=== PATIENT | male | born 1950 | race Caucasian/White ===

== ENCOUNTER 2020-08-14 11:49 | Inpatient (IN) | payer MEDICARE, OTHER ==
[~2020-08-14] VITALS: Ht 172.7 cm; Wt 83.5 kg
[2020-08-14 12:57] LABS: BASOPHILS % 0.7 % (0.0-2.0); EOSINOPHILS % 0.4 % (0.0-5.0); HEMATOCRIT. 39.7 % (42.0-52.0); HEMOGLOBIN. 13.4 g/dL (14.0-18.0); LYMPHOCYTES % 15.1 % (20.0-50.0); MEAN CORPUSCULAR HEMOGLOBIN 29.6 pg (28.0-32.0); MEAN CORPUSCULAR VOLUME 87.6 fL (80.0-94.0); MEAN PLATELET VOLUME 7.8 fl (7.4-10.4); MONOCYTES % 5.1 % (2.0-8.0); NEUTROPHILS % 78.7 % (40.0-76.0); PLATELET 289 x1000/uL (130-400); RED BLOOD CELL COUNT 4.54 mill/uL (4.7-6.1); RED CELL DISTRIBUTION WIDTH 13.6 % (11.6-14.6)
[2020-08-14 12:58] LABS: CHLORIDE 102 mEq/L (98-107)
[2020-08-14] MEDS ORDERED: HYDROCODONE/ACETAMINOPHEN 5/325MG TABLET PO ONE (15:15)
[2020-08-14] MEDS ORDERED: CEFTRIAXONE 1 G PREMIX 50 ML IV ONE (16:45)
[2020-08-14] MEDS ORDERED: ACETAMINOPHEN 325MG TABLET PO PRN ×2 (18:30)
[2020-08-14] MEDS ORDERED: CLONIDINE 0.1MG TABLET PO PRN (18:30)
[2020-08-14] MEDS ORDERED: ONDANSETRON HCL 4MG/2ML INJ IV PRN (18:30)
[2020-08-14] MEDS: LORAZEPAM 0.5MG TABLET PO PRN ×2 (19:06→21:16)
[2020-08-15] MEDS: HYDROCODONE/ACETAMINOPHEN 5/325MG TABLET PO PRN ×2 (00:04→15:41)
[2020-08-15] MEDS ORDERED: IOHEXOL-350 100 ML BOTTLE ONE (05:03)
[2020-08-15] MEDS ORDERED: LURA120T MT (10:58)
[2020-08-15 11:35] LABS: *COCAINE SCREEN URINE NEGATIVE (NEGATIVE)
[2020-08-15 11:36] LABS: *AMPHETAMINES SCREEN URINE NEGATIVE (NEGATIVE); *BARBITURATES SCREEN URINE NEGATIVE (NEGATIVE); CANNABINOID URINE SCREEN PRESUMTIVE POSITIVE (NEGATIVE); METHADONE URINE SCREEN NEGATIVE (NEGATIVE); OPIATES URINE SCREEN PRESUMTIVE POSITIVE (NEGATIVE); PHENCYCLIDINE URINE SCREEN NEGATIVE (NEGATIVE)
[2020-08-15 11:37] LABS: *BENZODIAZEPINES SCREEN URINE NEGATIVE (NEGATIVE)
[2020-08-15] MEDS ORDERED: ALBUTEROL 6.7GM HFA INHALER ORI PRN (12:15)
[2020-08-15] MEDS ORDERED: NON FORMULARY PATIENT HOME MED XX SCH (12:30)
[2020-08-15] MEDS ORDERED: HYDROXYZINE 25MG TABLET PO NR (12:30)
[2020-08-15] MEDS: METHYLPREDNISOLONE SOD SUCC 40 MG/ML VIAL IV SCH (14:25)
[2020-08-15] MEDS: DOCUSATE SODIUM 100MG CAPSULE PO PRN (16:53)
[2020-08-16] MEDS: METHYLPREDNISOLONE SOD SUCC 40 MG/ML VIAL IV SCH ×3 (00:45→21:05)
[2020-08-16] MEDS: HYDROCODONE/ACETAMINOPHEN 5/325MG TABLET PO PRN ×3 (02:02→21:04)
[2020-08-16] MEDS: LORAZEPAM 0.5MG TABLET PO PRN ×2 (02:02→17:01)
[2020-08-16 05:07] LABS: HEMATOCRIT. 43.6 % (42.0-52.0); HEMOGLOBIN. 14.8 g/dL (14.0-18.0); MEAN CORPUSCULAR HEMOGLOBIN 29.5 pg (28.0-32.0); MEAN PLATELET VOLUME 7.5 fl (7.4-10.4); PLATELET 287 x1000/uL (130-400); RED BLOOD CELL COUNT 5.01 mill/uL (4.7-6.1); RED CELL DISTRIBUTION WIDTH 13.5 % (11.6-14.6)
[2020-08-16 05:11] LABS: CHLORIDE 101 mEq/L (98-107)
[2020-08-16 10:30] VITALS: BP 163/98
[2020-08-16 12:00] VITALS: BP 151/76
[2020-08-16] MEDS ORDERED: GABA800T97 PO (12:02)
[2020-08-16 15:44] LABS: PLATELET ESTIMATE NORMAL
[2020-08-16 16:00] VITALS: BP 134/57
[2020-08-16] MEDS: NICOTINE 7MG PATCH TD SCH (16:05)
[2020-08-16] MEDS: HYDROXYZINE 25MG TABLET PO SCH (16:05)
[2020-08-16 20:00] VITALS: BP 122/83
[2020-08-16] MEDS ORDERED: IOHEXOL-350 100 ML BOTTLE ONE (20:48)
[2020-08-16] MEDS: GABAPENTIN 400MG CAPSULE PO SCH (21:05)
[2020-08-16] MEDS: DOCUSATE SODIUM 100MG CAPSULE PO PRN (22:02)
[2020-08-17] VITALS: BP 138/84
[2020-08-17] MEDS: LORAZEPAM 0.5MG TABLET PO PRN ×2 (01:12→23:02)
[2020-08-17 04:00] VITALS: BP 147/83
[2020-08-17] MEDS: METHYLPREDNISOLONE SOD SUCC 40 MG/ML VIAL IV SCH ×3 (05:18→22:28)
[2020-08-17] MEDS: GABAPENTIN 400MG CAPSULE PO SCH ×3 (05:18→22:32)
[2020-08-17] MEDS: HYDROCODONE/ACETAMINOPHEN 5/325MG TABLET PO PRN ×3 (05:27→19:33)
[2020-08-17 08:00] VITALS: BP_SYST 129; BP_SYST 141; BP_DIAS 76; BP_DIAS 78
[2020-08-17 08:13] LABS: BASOPHILS % 0.6 % (0.0-2.0); HEMATOCRIT. 44.3 % (42.0-52.0); HEMOGLOBIN. 14.8 g/dL (14.0-18.0); LYMPHOCYTES % 12.3 % (20.0-50.0); MEAN CORPUSCULAR HEMOGLOBIN 29.3 pg (28.0-32.0); MEAN CORPUSCULAR VOLUME 87.4 fL (80.0-94.0); MEAN PLATELET VOLUME 7.7 fl (7.4-10.4); MONOCYTES % 6.4 % (2.0-8.0); NEUTROPHILS % 80.7 % (40.0-76.0); PLATELET 291 x1000/uL (130-400); RED BLOOD CELL COUNT 5.07 mill/uL (4.7-6.1); RED CELL DISTRIBUTION WIDTH 13.6 % (11.6-14.6)
[2020-08-17 08:33] LABS: CHLORIDE 101 mEq/L (98-107)
[2020-08-17] MEDS: HYDROXYZINE 25MG TABLET PO SCH ×2 (09:23→17:00)
[2020-08-17] MEDS: NICOTINE 7MG PATCH TD SCH (09:23)
[2020-08-17 12:00] VITALS: BP 171/95
[2020-08-17] MEDS: DOCUSATE SODIUM 100MG CAPSULE PO PRN (14:01)
[2020-08-17] MEDS ORDERED: IPRATROPIUM/ALBUTEROL 0.5-3(2.5)MG/3ML NEB HHN PRN (14:15)
[2020-08-17 20:00] VITALS: BP 131/79
[2020-08-17] MEDS: IPRATROPIUM/ALBUTEROL 0.5-3(2.5)MG/3ML NEB HHN SCH (21:53)
[2020-08-17] MEDS: METOPROLOL TARTRATE 25MG TABLET PO SCH (22:29)
[2020-08-18] VITALS: BP 119/74
[2020-08-18] MEDS: HYDROCODONE/ACETAMINOPHEN 5/325MG TABLET PO PRN ×3 (03:34→20:24)
[2020-08-18 04:00] VITALS: BP 112/68
[2020-08-18 06:50] LABS: BASOPHILS % 0.4 % (0.0-2.0); HEMATOCRIT. 43.8 % (42.0-52.0); HEMOGLOBIN. 14.9 g/dL (14.0-18.0); LYMPHOCYTES % 9.6 % (20.0-50.0); MEAN CORPUSCULAR HEMOGLOBIN 29.9 pg (28.0-32.0); MEAN CORPUSCULAR VOLUME 88.1 fL (80.0-94.0); MEAN PLATELET VOLUME 7.7 fl (7.4-10.4); MONOCYTES % 3.4 % (2.0-8.0); NEUTROPHILS % 86.6 % (40.0-76.0); PLATELET 294 x1000/uL (130-400); RED BLOOD CELL COUNT 4.97 mill/uL (4.7-6.1); RED CELL DISTRIBUTION WIDTH 13.6 % (11.6-14.6)
[2020-08-18 07:31] LABS: CHLORIDE 101 mEq/L (98-107)
[2020-08-18 07:42] LABS: T4 FREE 0.93 ng/dL (0.76-1.46)
[2020-08-18] MEDS: GABAPENTIN 400MG CAPSULE PO SCH ×3 (07:52→20:22)
[2020-08-18] MEDS: METHYLPREDNISOLONE SOD SUCC 40 MG/ML VIAL IV SCH (07:52)
[2020-08-18 08:05] VITALS: BP 131/70
[2020-08-18] MEDS: IPRATROPIUM/ALBUTEROL 0.5-3(2.5)MG/3ML NEB HHN SCH ×3 (09:00→22:24)
[2020-08-18] MEDS: METOPROLOL TARTRATE 25MG TABLET PO SCH ×2 (09:12→20:23)
[2020-08-18] MEDS: HYDROXYZINE 25MG TABLET PO SCH ×2 (09:12→18:34)
[2020-08-18] MEDS: NICOTINE 7MG PATCH TD SCH (09:13)
[2020-08-18 12:00] VITALS: BP 130/75
[2020-08-18 16:00] VITALS: BP 131/73
[2020-08-18] MEDS ORDERED: PANT40TA51 MT (16:32)
[2020-08-18] MEDS ORDERED: METO25TA6 PO (16:32)
[2020-08-18] MEDS ORDERED: P20 MT (16:32)
[2020-08-18 20:00] VITALS: BP 148/77
[2020-08-19] VITALS: BP 107/60
[2020-08-19 04:00] VITALS: BP 119/67
[2020-08-19] MEDS: IPRATROPIUM/ALBUTEROL 0.5-3(2.5)MG/3ML NEB HHN SCH ×2 (04:06→09:25)
[2020-08-19] MEDS: HYDROCODONE/ACETAMINOPHEN 5/325MG TABLET PO PRN ×2 (04:14→10:19)
[2020-08-19] MEDS: GABAPENTIN 400MG CAPSULE PO SCH (05:20)
[2020-08-19 07:14] LABS: BASOPHILS % 0.5 % (0.0-2.0); EOSINOPHILS % 0.3 % (0.0-5.0); HEMATOCRIT. 44.7 % (42.0-52.0); LYMPHOCYTES % 30.7 % (20.0-50.0); MEAN CORPUSCULAR VOLUME 89.4 fL (80.0-94.0); MEAN PLATELET VOLUME 7.8 fl (7.4-10.4); MONOCYTES % 7.4 % (2.0-8.0); NEUTROPHILS % 61.1 % (40.0-76.0); PLATELET 248 x1000/uL (130-400); RED CELL DISTRIBUTION WIDTH 13.5 % (11.6-14.6)
[2020-08-19 07:42] LABS: CHLORIDE 101 mEq/L (98-107)
[2020-08-19 08:00] VITALS: BP 129/60
[2020-08-19] MEDS ORDERED: PREDNISONE 20MG TABLET PO SCH (09:00)
[2020-08-19] MEDS: HYDROXYZINE 25MG TABLET PO SCH (10:19)
[2020-08-19] MEDS: METOPROLOL TARTRATE 25MG TABLET PO SCH (10:20)
[2020-08-19] MEDS: NICOTINE 7MG PATCH TD SCH (10:21)
[2020-08-19] MEDS ORDERED: METOPROLOL TARTRATE 25MG TABLET PO NR (11:00)
[2020-08-19 11:52] VITALS: BP 119/59
[2020-08-19 12:00] VITALS: BP 119/59
[2020-08-19] MEDS ORDERED: METO-539 MT (12:45)
== END 2020-08-19 13:35 | disposition home health service (06) | DRG 140 ==
LOC: ER 13:27 → MICUSO 16:39 → 7EST 08-16 07:52 → 8WST 08-17 11:19
PROVIDERS: ADMIT Internal Medicine; ATTEND Internal Medicine
DX: J44.1 Chronic obstructive pulmonary disease with (acute) exacerbation (principal); J96.01 Acute respiratory failure with hypoxia; E44.0 Moderate protein-calorie malnutrition; G82.50 Quadriplegia, unspecified; F20.9 Schizophrenia, unspecified; D64.9 Anemia, unspecified; I74.09 Other arterial embolism and thrombosis of abdominal aorta; G89.29 Other chronic pain; E87.70 Fluid overload, unspecified; Z20.822 Contact with and (suspected) exposure to COVID-19; R79.89 Other specified abnormal findings of blood chemistry; M48.02 Spinal stenosis, cervical region; I47.1 Supraventricular tachycardia; J98.11 Atelectasis; I42.2 Other hypertrophic cardiomyopathy; I25.2 Old myocardial infarction; Z87.891 Personal history of nicotine dependence; Z68.28 Body mass index [BMI] 28.0-28.9, adult
CPT/HCPCS: 36415; 71045; 71275; 75635; 80048; 80053; 80305; 83735; 83880; 84145; 84439; 84443; 84481; 84484; 85025; 85379; 87426; 87635; 93005; 93306; 94640; 96365; 97162; 99285; J0696; J2920; J7512; Q9967

== ENCOUNTER 2020-08-29 17:55 | Inpatient (IN) | payer MEDICARE, OTHER ==
[~2020-08-29] VITALS: Ht 172.7 cm; Wt 86.6 kg
[~2020-08-29 17:55] MED LIST: GABA800T97 PO; LURA120T MT; METO-539 MT; P20 MT; PANT40TA51 MT
[2020-08-29] MEDS ORDERED: advair (18:05)
[2020-08-29] MEDS ORDERED: aspirin (18:05)
[2020-08-29] MEDS ORDERED: IPRATROPIUM BROMIDE (0.02%) 0.5MG/2.5ML NEB HHN STA (18:21)
[2020-08-29] MEDS ORDERED: ALBUTEROL (0.083%) 2.5MG/3ML NEB HHN STA (18:21)
[2020-08-29] MEDS ORDERED: METHYLPREDNISOLONE SOD SUCC 125 MG/2 ML VIAL IV STA (18:21)
[2020-08-29 18:51] LABS: BASOPHILS % 0.8 % (0.0-2.0); EOSINOPHILS % 0.6 % (0.0-5.0); HEMATOCRIT. 38.9 % (42.0-52.0); HEMOGLOBIN. 12.8 g/dL (14.0-18.0); LYMPHOCYTES % 18.7 % (20.0-50.0); MEAN CORPUSCULAR HEMOGLOBIN 28.9 pg (28.0-32.0); MEAN PLATELET VOLUME 7.7 fl (7.4-10.4); MONOCYTES % 9.3 % (2.0-8.0); NEUTROPHILS % 70.6 % (40.0-76.0); PLATELET 237 x1000/uL (130-400); RED BLOOD CELL COUNT 4.43 mill/uL (4.7-6.1); RED CELL DISTRIBUTION WIDTH 14.4 % (11.6-14.6)
[2020-08-29 18:59] LABS: CHLORIDE 104 mEq/L (98-107)
[2020-08-30] MEDS ORDERED: HYDROXYZINE 25MG TABLET PO ONE (01:30)
[2020-08-30] MEDS ORDERED: LORAZEPAM 2MG/ML CPJ IV NR (03:30)
[2020-08-30] MEDS ORDERED: GUAIFENESIN 200MG/10ML SUGAR FREE UDC PO PRN (08:45)
[2020-08-30] MEDS ORDERED: ACETAMINOPHEN 325MG TABLET PO PRN (08:45)
[2020-08-30] MEDS ORDERED: DIPHENHYDRAMINE 50MG/ML VIAL IV PRN (08:45)
[2020-08-30] MEDS ORDERED: IPRATROPIUM/ALBUTEROL 0.5-3(2.5)MG/3ML NEB HHN PRN (08:45)
[2020-08-30] MEDS ORDERED: HYDRALAZINE 20MG/ML VIAL IV PRN (08:45)
[2020-08-30] MEDS ORDERED: DOCUSATE SODIUM 100MG CAPSULE PO PRN (08:45)
[2020-08-30] MEDS ORDERED: CLONIDINE 0.1MG TABLET PO PRN (08:45)
[2020-08-30] MEDS ORDERED: MAGNESIUM/ALUMINUM HYDROXIDE/SIMETHICONE 30ML UDC PO PRN (08:45)
[2020-08-30] MEDS: ENOXAPARIN 40MG/0.4ML SYR SUBCUT SCH (09:44)
[2020-08-30] MEDS: METHYLPREDNISOLONE SOD SUCC 40 MG/ML VIAL IV SCH ×3 (09:44→22:10)
[2020-08-30] MEDS ORDERED: BACL-141 PO (11:03)
[2020-08-30] MEDS ORDERED: LURA120T PO (11:03)
[2020-08-30] MEDS: LEVOFLOXACIN 500MG PREMIX 100 ML IV SCH (11:42)
[2020-08-30] MEDS: HYDROCODONE/ACETAMINOPHEN 5/325MG TABLET PO PRN (12:01)
[2020-08-30 12:06] VITALS: BP 109/72
[2020-08-30] MEDS ORDERED: PNEUMOCOCCAL 23-VAL P-SAC VAC 0.5 ML IM ONE (14:00)
[2020-08-30] MEDS: MORPHINE SULFATE 2 MG/ML CPJ (NOT FOR IM USE) IV PRN (14:45)
[2020-08-30] MEDS: SODIUM CHLORIDE 0.9% INJ 3ML FLUSH IVF SCH ×2 (14:45→21:48)
[2020-08-30] MEDS: ONDANSETRON HCL 4MG/2ML INJ IV PRN (15:17)
[2020-08-30 15:40] LABS: CREATINE KINASE 49 IU/L (39-308); CREATINE KINASE MB FRACTION 2.8 ng/mL (0.5-3.6)
[2020-08-30 15:45] VITALS: BP 149/80
[2020-08-30 16:10] VITALS: BP 125/61
[2020-08-30] MEDS ORDERED: NICO-645 TP (16:23)
[2020-08-30] MEDS ORDERED: GABAPENTIN 400MG CAPSULE PO PRN (17:15)
[2020-08-30] MEDS: NICOTINE 7MG PATCH TD SCH (17:52)
[2020-08-30] MEDS: LORAZEPAM 2MG/ML CPJ IV PRN (17:52)
[2020-08-30 20:00] VITALS: BP 115/76
[2020-08-30] MEDS ORDERED: AMIODARONE HCL 900 MG in DEXT 5% WATER 482 ML IV SCH (20:30)
[2020-08-30] MEDS ORDERED: MEDICATION NOT ON FORMULARY EA (Lurasidone Hcl (Latuda) 1 TAB) MT SCH (21:00)
[2020-08-30] MEDS: METOPROLOL TARTRATE 50MG TABLET PO SCH (21:23)
[2020-08-30 21:49] VITALS: BP 121/75
[2020-08-31] VITALS (11 sets, daily range): BP systolic 108–140; BP diastolic 56–89
[2020-08-31 00:20] LABS: CREATINE KINASE 43 IU/L (39-308)
[2020-08-31 00:22] LABS: CREATINE KINASE MB FRACTION 2.5 ng/mL (0.5-3.6)
[2020-08-31] MEDS: METHYLPREDNISOLONE SOD SUCC 40 MG/ML VIAL IV SCH ×3 (05:48→21:23)
[2020-08-31] MEDS: SODIUM CHLORIDE 0.9% INJ 3ML FLUSH IVF SCH ×3 (05:49→21:24)
[2020-08-31 06:56] LABS: HEMATOCRIT. 38.6 % (42.0-52.0); HEMOGLOBIN. 12.7 g/dL (14.0-18.0); MEAN CORPUSCULAR HEMOGLOBIN 28.6 pg (28.0-32.0); MEAN CORPUSCULAR VOLUME 86.9 fL (80.0-94.0); MEAN PLATELET VOLUME 8.2 fl (7.4-10.4); PLATELET 265 x1000/uL (130-400); RED BLOOD CELL COUNT 4.44 mill/uL (4.7-6.1); RED CELL DISTRIBUTION WIDTH 14.1 % (11.6-14.6)
[2020-08-31 07:24] LABS: CHLORIDE 104 mEq/L (98-107)
[2020-08-31] MEDS: NICOTINE 7MG PATCH TD SCH (08:25)
[2020-08-31] MEDS: METOPROLOL TARTRATE 50MG TABLET PO SCH ×2 (08:25→21:24)
[2020-08-31] MEDS: ENOXAPARIN 40MG/0.4ML SYR SUBCUT SCH (08:25)
[2020-08-31] MEDS: PANTOPRAZOLE 40MG DR TABLET PO SCH (08:26)
[2020-08-31] MEDS: ONDANSETRON HCL 4MG/2ML INJ IV PRN (08:26)
[2020-08-31] MEDS ORDERED: HYDR10TA34 PO (08:28)
[2020-08-31] MEDS: MORPHINE SULFATE 2 MG/ML CPJ (NOT FOR IM USE) IV PRN ×2 (08:29→17:04)
[2020-08-31] MEDS: HYDROXYZINE 10 MG TABLET PO SCH ×2 (10:15→17:03)
[2020-08-31 10:59] LABS: PLATELET ESTIMATE NORMAL
[2020-08-31] MEDS: LORAZEPAM 2MG/ML CPJ IV PRN ×2 (11:10→21:34)
[2020-08-31] MEDS: LEVOFLOXACIN 500MG PREMIX 100 ML IV SCH (11:10)
[2020-08-31 16:19] LABS: CREATINE KINASE 45 IU/L (39-308)
[2020-08-31 16:21] LABS: CREATINE KINASE MB FRACTION 2.3 ng/mL (0.5-3.6)
[2020-09-01] VITALS: BP 124/62
[2020-09-01 00:15] LABS: CREATINE KINASE 42 IU/L (39-308)
[2020-09-01 00:16] LABS: CREATINE KINASE MB FRACTION 2.1 ng/mL (0.5-3.6)
[2020-09-01] MEDS: HYDROCODONE/ACETAMINOPHEN 5/325MG TABLET PO PRN ×3 (01:46→10:19)
[2020-09-01 04:00] VITALS: BP 127/64
[2020-09-01] MEDS: METHYLPREDNISOLONE SOD SUCC 40 MG/ML VIAL IV SCH (05:27)
[2020-09-01] MEDS: SODIUM CHLORIDE 0.9% INJ 3ML FLUSH IVF SCH (05:28)
[2020-09-01] MEDS: LORAZEPAM 2MG/ML CPJ IV PRN (06:03)
[2020-09-01] MEDS: PANTOPRAZOLE 40MG DR TABLET PO SCH (06:09)
[2020-09-01 06:14] LABS: CREATINE KINASE 34 IU/L (39-308); CREATINE KINASE MB FRACTION 1.7 ng/mL (0.5-3.6)
[2020-09-01 08:30] VITALS: BP 117/64
[2020-09-01] MEDS: NICOTINE 7MG PATCH TD SCH (09:15)
[2020-09-01] MEDS: HYDROXYZINE 10 MG TABLET PO SCH (09:15)
[2020-09-01] MEDS: ENOXAPARIN 40MG/0.4ML SYR SUBCUT SCH (09:15)
[2020-09-01] MEDS: METOPROLOL TARTRATE 50MG TABLET PO SCH (09:16)
[2020-09-01 12:00] VITALS: BP 134/68
[2020-09-01] MEDS: LEVOFLOXACIN 500MG PREMIX 100 ML IV SCH (13:31)
[2020-09-01 15:29] VITALS: BP 130/68
[2020-09-01 16:00] VITALS: BP 130/67
== END 2020-09-01 18:34 | disposition home health service (06) | DRG 133 ==
LOC: ER 17:55 → 6WST 23:19 → EDBEDREQTM 23:22 → EDBEDREQ 23:22 → ENRESERV 08-30 07:42 → 6WST 08-30 08:54
PROVIDERS: ADMIT Internal Medicine; ATTEND Internal Medicine
DX: J96.00 Acute respiratory failure, unspecified whether with hypoxia or hypercapnia (principal); J44.1 Chronic obstructive pulmonary disease with (acute) exacerbation; I10 Essential (primary) hypertension; I42.9 Cardiomyopathy, unspecified; E44.1 Mild protein-calorie malnutrition; I47.1 Supraventricular tachycardia; F20.9 Schizophrenia, unspecified; F17.210 Nicotine dependence, cigarettes, uncomplicated; Z68.29 Body mass index [BMI] 29.0-29.9, adult; E87.1 Hypo-osmolality and hyponatremia; G89.29 Other chronic pain; Z98.890 Other specified postprocedural states
CPT/HCPCS: 36415; 71045; 80053; 80061; 82550; 82553; 82962; 83036; 83880; 84439; 84443; 84484; 85025; 85379; 90732; 93005; 93970; 94640; 96374; 97116; 97162; 97166; 99285; C1893; J0282; J1650; J1956; J2060; J2270; J2405; J2920; J2930; J7040; J7060

== ENCOUNTER 2020-09-23 17:11 | Inpatient (IN) | payer MEDICARE, OTHER ==
[~2020-09-23] VITALS: Ht 170.2 cm; Wt 73.5 kg
[~2020-09-23 17:11] MED LIST changes: +BACL-141 PO; +HYDR10TA34 PO; +LURA120T PO; +NICO-645 TP; +advair; +aspirin
[2020-09-23 18:49] LABS: BASOPHILS % 1.1 % (0.0-2.0); EOSINOPHILS % 1.1 % (0.0-5.0); HEMATOCRIT. 43.6 % (42.0-52.0); HEMOGLOBIN. 14.6 g/dL (14.0-18.0); MEAN CORPUSCULAR HEMOGLOBIN 29.2 pg (28.0-32.0); MEAN PLATELET VOLUME 7.8 fl (7.4-10.4); MONOCYTES % 9.6 % (2.0-8.0); NEUTROPHILS % 63.2 % (40.0-76.0); PLATELET 264 x1000/uL (130-400); RED BLOOD CELL COUNT 5.02 mill/uL (4.7-6.1); RED CELL DISTRIBUTION WIDTH 15.3 % (11.6-14.6)
[2020-09-23 18:57] LABS: CHLORIDE 103 mEq/L (98-107)
[2020-09-23 19:05] LABS: INR 1.1; PROTHROMBIN TIME 11.6 sec (9.6-11.0)
[2020-09-23] MEDS ORDERED: LORAZEPAM 2MG/ML CPJ IV ONE (20:15)
[2020-09-23] MEDS ORDERED: HALOPERIDOL LACTATE 5MG/ML VIAL IM ONE (23:00)
[2020-09-23] MEDS ORDERED: ACETAMINOPHEN 325MG TABLET PO PRN (23:45)
[2020-09-23] MEDS ORDERED: DIPHENHYDRAMINE 50MG/ML VIAL IV ONE (23:45)
[2020-09-23] MEDS ORDERED: HYDROCODONE/ACETAMINOPHEN 5/325MG TABLET PO PRN (23:45)
[2020-09-23] MEDS ORDERED: DOCUSATE SODIUM 100MG CAPSULE PO PRN (23:45)
[2020-09-23] MEDS ORDERED: GUAIFENESIN 200MG/10ML SUGAR FREE UDC PO PRN (23:45)
[2020-09-23] MEDS ORDERED: NA PHOS,M-B/NA PHOS,DI-BA ENEMA 118ML PR PRN (23:45)
[2020-09-23] MEDS ORDERED: LORAZEPAM 2MG/ML CPJ IV PRN (23:45)
[2020-09-23] MEDS ORDERED: ONDANSETRON HCL 4MG/2ML INJ IV PRN (23:45)
[2020-09-23] MEDS ORDERED: MAGNESIUM/ALUMINUM HYDROXIDE/SIMETHICONE 30ML UDC PO PRN (23:45)
[2020-09-23] MEDS ORDERED: CLONIDINE 0.1MG TABLET PO PRN (23:45)
[2020-09-23] MEDS ORDERED: DIPHENHYDRAMINE 50MG/ML VIAL IV PRN (23:45)
[2020-09-23] MEDS ORDERED: IPRATROPIUM/ALBUTEROL 0.5-3(2.5)MG/3ML NEB NEB PRN (23:45)
[2020-09-24] MEDS: ENOXAPARIN 40MG/0.4ML SYR SUBCUT SCH
[2020-09-24] MEDS ORDERED: OLANZAPINE 5MG TABLET PO STA (00:56)
[2020-09-24] MEDS ORDERED: OLANZAPINE 10 MG/VIAL IM ONE (02:00)
[2020-09-24] MEDS ORDERED: CEFTRIAXONE 1 G PREMIX 50 ML IV ONE (02:45)
[2020-09-24] MEDS ORDERED: SODIUM CHLORIDE 0.9% 1,000 ML IV ONE (02:45)
[2020-09-24] MEDS ORDERED: LORAZEPAM 2MG/ML CPJ IV ONE ×2 (02:45)
[2020-09-24 03:12] LABS: CLARITY URINE CLEAR (CLEAR); COLOR URINE YELLOW (YELLOW); KETONES URINE TRACE (NEGATIVE); LEUKOCYTE ESTERASE URINE NEGATIVE (NEGATIVE); NITRITE URINE NEGATIVE (NEGATIVE); OCCULT BLOOD URINE NEGATIVE (NEGATIVE); PH URINE 6.5 (4.5-8.0); PROTEIN URINE NEGATIVE (NEGATIVE); SPECIFIC GRAVITY URINE 1.013 (1.005-1.030)
[2020-09-24 04:07] LABS: BASOPHILS % 0.5 % (0.0-2.0); EOSINOPHILS % 0.4 % (0.0-5.0); HEMATOCRIT. 41.9 % (42.0-52.0); HEMOGLOBIN. 13.6 g/dL (14.0-18.0); LYMPHOCYTES % 14.2 % (20.0-50.0); MEAN CORPUSCULAR HEMOGLOBIN 28.6 pg (28.0-32.0); MEAN CORPUSCULAR VOLUME 88.2 fL (80.0-94.0); MEAN PLATELET VOLUME 7.4 fl (7.4-10.4); MONOCYTES % 10.2 % (2.0-8.0); NEUTROPHILS % 74.7 % (40.0-76.0); PLATELET 246 x1000/uL (130-400); RED BLOOD CELL COUNT 4.75 mill/uL (4.7-6.1); RED CELL DISTRIBUTION WIDTH 15.6 % (11.6-14.6)
[2020-09-24 04:09] LABS: CHLORIDE 106 mEq/L (98-107)
[2020-09-24 04:16] LABS: LDL CHOLESTEROL 144 mg/dL (5-100)
[2020-09-24 04:18] LABS: HDL CHOLESTEROL 47 mg/dL (40-59); T4 FREE 1.21 ng/dL (0.76-1.46)
[2020-09-24 08:00] VITALS: BP 137/78
[2020-09-24 11:27] LABS: BG BASE EXCESS 3.9 mmol/L (-2.0-2.0); BG CARBOXYHEMOGLOBIN 1.4 % (0.5-1.5); BG DEOXYHEMOGLOBIN 5.2 % (0.0-5.0); BG HCO3 ACT 29.6 mmol/L (22.0-26.0); BG METHEMOGLOBIN 0.2 % (0.0-1.5); BG OXYGEN SATURATION 94.7 % (92.0-98.5); BG OXYHEMOGLOBIN 93.2 % (94.0-97.0); BG PCO2 48.4 mmHg (35.0-45.0); BG PH 7.404 (7.350-7.450); BG SAMPLE SITE RIGHT RADIAL; BG TOTAL HEMOGLOBIN 13.9 g/dL (12.0-18.0); BG VENT MODE NASAL CANNULA
[2020-09-24] MEDS ORDERED: FOLIC ACID 1 MG, THIAMINE HCL 100 MG, MVI, ADULT NO.1 10 ML in DEXTROSE 5% WATER 1,000 ML IV SCH (11:30)
[2020-09-24 12:00] VITALS: BP 130/79
[2020-09-24] MEDS: FOLIC ACID 1 MG, THIAMINE HCL 100 MG in DEXTROSE 5% WATER 1,000 ML IV SCH (12:54)
[2020-09-24] MEDS: MULTIVITAMINS,THER W-MINERALS TABLET PO SCH (12:55)
[2020-09-24 13:06] LABS: *AMPHETAMINES SCREEN URINE NEGATIVE (NEGATIVE); *BARBITURATES SCREEN URINE NEGATIVE (NEGATIVE); *BENZODIAZEPINES SCREEN URINE NEGATIVE (NEGATIVE); CANNABINOID URINE SCREEN PRESUMTIVE POSITIVE (NEGATIVE)
[2020-09-24 13:07] LABS: *COCAINE SCREEN URINE NEGATIVE (NEGATIVE); METHADONE URINE SCREEN NEGATIVE (NEGATIVE); OPIATES URINE SCREEN NEGATIVE (NEGATIVE)
[2020-09-24 13:08] LABS: PHENCYCLIDINE URINE SCREEN NEGATIVE (NEGATIVE)
[2020-09-24 14:25] VITALS: BP 120/98
[2020-09-24] MEDS: AMLODIPINE 2.5MG TABLET PO SCH ×2 (15:45→16:39)
[2020-09-24 16:00] VITALS: BP 134/76
[2020-09-24] MEDS: OLANZAPINE 5MG TABLET PO SCH (18:46)
[2020-09-24 20:00] VITALS: BP 126/73
[2020-09-24] MEDS: MORPHINE SULFATE 2 MG/ML CPJ (NOT FOR IM USE) IV PRN (21:40)
[2020-09-25] VITALS: BP 142/75
[2020-09-25] MEDS: ENOXAPARIN 40MG/0.4ML SYR SUBCUT SCH ×2 (00:07→23:15)
[2020-09-25 04:00] VITALS: BP 122/73
[2020-09-25 06:27] LABS: CHLORIDE 102 mEq/L (98-107)
[2020-09-25 06:33] LABS: BASOPHILS % 0.6 % (0.0-2.0); EOSINOPHILS % 0.6 % (0.0-5.0); HEMATOCRIT. 41.2 % (42.0-52.0); HEMOGLOBIN. 13.8 g/dL (14.0-18.0); LYMPHOCYTES % 23.9 % (20.0-50.0); MEAN CORPUSCULAR VOLUME 86.3 fL (80.0-94.0); MEAN PLATELET VOLUME 7.7 fl (7.4-10.4); MONOCYTES % 11.3 % (2.0-8.0); NEUTROPHILS % 63.6 % (40.0-76.0); PLATELET 285 x1000/uL (130-400); RED BLOOD CELL COUNT 4.77 mill/uL (4.7-6.1); RED CELL DISTRIBUTION WIDTH 15.2 % (11.6-14.6)
[2020-09-25 06:45] LABS: LDL CHOLESTEROL 161 mg/dL (5-100)
[2020-09-25 06:47] LABS: CREATINE KINASE 140 IU/L (39-308); HDL CHOLESTEROL 44 mg/dL (40-59)
[2020-09-25 06:52] LABS: CREATINE KINASE MB FRACTION 2.3 ng/mL (0.5-3.6)
[2020-09-25 08:00] VITALS: BP 132/71
[2020-09-25] MEDS: MULTIVITAMINS,THER W-MINERALS TABLET PO SCH (08:19)
[2020-09-25] MEDS: AMLODIPINE 2.5MG TABLET PO SCH (08:19)
[2020-09-25] MEDS: OLANZAPINE 5MG TABLET PO SCH (08:20)
[2020-09-25] MEDS: FOLIC ACID 1 MG, THIAMINE HCL 100 MG in DEXTROSE 5% WATER 1,000 ML IV SCH (08:52)
[2020-09-25] MEDS: MORPHINE SULFATE 2 MG/ML CPJ (NOT FOR IM USE) IV PRN (10:18)
[2020-09-25 12:00] VITALS: BP 135/71
[2020-09-25] MEDS: LORAZEPAM 2MG/ML CPJ IV PRN (13:23)
[2020-09-25] MEDS ORDERED: POTASSIUM CHLORIDE 20MEQ TABLET SR PO NR (14:15)
[2020-09-25 16:00] VITALS: BP 141/81
[2020-09-25] MEDS: DILTIAZEM HCL 60MG TABLET PO SCH ×2 (17:01→23:14)
[2020-09-26] VITALS: BP 107/65
[2020-09-26] MEDS: MORPHINE SULFATE 2 MG/ML CPJ (NOT FOR IM USE) IV PRN ×2 (00:31→17:19)
[2020-09-26 04:00] VITALS: BP 122/66
[2020-09-26] MEDS: DILTIAZEM HCL 60MG TABLET PO SCH ×3 (05:36→17:11)
[2020-09-26 05:50] LABS: BASOPHILS % 0.3 % (0.0-2.0); EOSINOPHILS % 0.4 % (0.0-5.0); HEMATOCRIT. 41.3 % (42.0-52.0); MEAN CORPUSCULAR HEMOGLOBIN 29.4 pg (28.0-32.0); MEAN CORPUSCULAR VOLUME 86.8 fL (80.0-94.0); MEAN PLATELET VOLUME 7.8 fl (7.4-10.4); MONOCYTES % 9.6 % (2.0-8.0); NEUTROPHILS % 70.7 % (40.0-76.0); PLATELET 269 x1000/uL (130-400); RED BLOOD CELL COUNT 4.76 mill/uL (4.7-6.1); RED CELL DISTRIBUTION WIDTH 15.3 % (11.6-14.6)
[2020-09-26 06:29] LABS: CHLORIDE 103 mEq/L (98-107)
[2020-09-26 08:00] VITALS: BP 115/71
[2020-09-26] MEDS: OLANZAPINE 5MG TABLET PO SCH (09:38)
[2020-09-26] MEDS: MULTIVITAMINS,THER W-MINERALS TABLET PO SCH (09:38)
[2020-09-26] MEDS: FOLIC ACID 1 MG, THIAMINE HCL 100 MG in DEXTROSE 5% WATER 1,000 ML IV SCH (09:39)
[2020-09-26 12:00] VITALS: BP 113/59
[2020-09-26 16:00] VITALS: BP 104/55
[2020-09-26 20:30] VITALS: BP 119/59
[2020-09-26] MEDS: ENOXAPARIN 40MG/0.4ML SYR SUBCUT SCH (21:09)
[2020-09-26] MEDS: ATORVASTATIN CALCIUM 20MG TABLET PO SCH (21:09)
[2020-09-26] MEDS: LORAZEPAM 2MG/ML CPJ IV PRN (22:26)
[2020-09-26] MEDS: ARIPIPRAZOLE 5MG TABLET PO SCH (22:45)
[2020-09-27 00:06] VITALS: BP 121/77
[2020-09-27] MEDS: DILTIAZEM HCL 60MG TABLET PO SCH ×4 (00:37→17:53)
[2020-09-27 04:26] VITALS: BP 105/59
[2020-09-27 08:00] VITALS: BP 105/44
[2020-09-27] MEDS: ARIPIPRAZOLE 5MG TABLET PO SCH (08:29)
[2020-09-27] MEDS: OLANZAPINE 5MG TABLET PO SCH (08:30)
[2020-09-27] MEDS: MULTIVITAMINS,THER W-MINERALS TABLET PO SCH (08:51)
[2020-09-27] MEDS: FOLIC ACID 1 MG, THIAMINE HCL 100 MG in DEXTROSE 5% WATER 1,000 ML IV SCH (08:54)
[2020-09-27 12:42] VITALS: BP 117/67
[2020-09-27 16:16] VITALS: BP 101/63
[2020-09-27] MEDS: RIVAROXABAN 20 MG TABLET PO SCH (17:53)
[2020-09-27 20:39] VITALS: BP 122/71
[2020-09-27] MEDS: ATORVASTATIN CALCIUM 20MG TABLET PO SCH (21:11)
[2020-09-27] MEDS ORDERED: DOXE100C4 MT (21:21)
[2020-09-27] MEDS ORDERED: DOXEPIN HCL 25MG CAPSULE PO SCH (22:00)
[2020-09-27] MEDS ORDERED: NON FORMULARY PATIENT HOME MED PO SCH (22:30)
[2020-09-27] MEDS ORDERED: LATUDA 120 MG PO SCH (23:00)
[2020-09-28 00:33] VITALS: BP 111/55
[2020-09-28 04:00] VITALS: BP 93/46
[2020-09-28] MEDS: DILTIAZEM HCL 60MG TABLET PO SCH ×4 (05:10→18:00)
[2020-09-28 07:17] LABS: BASOPHILS % 0.5 % (0.0-2.0); EOSINOPHILS % 1.8 % (0.0-5.0); HEMATOCRIT. 42.2 % (42.0-52.0); HEMOGLOBIN. 14.1 g/dL (14.0-18.0); LYMPHOCYTES % 29.1 % (20.0-50.0); MEAN CORPUSCULAR HEMOGLOBIN 29.1 pg (28.0-32.0); MEAN CORPUSCULAR VOLUME 87.3 fL (80.0-94.0); MEAN PLATELET VOLUME 7.9 fl (7.4-10.4); MONOCYTES % 11.3 % (2.0-8.0); NEUTROPHILS % 57.3 % (40.0-76.0); PLATELET 270 x1000/uL (130-400); RED BLOOD CELL COUNT 4.83 mill/uL (4.7-6.1)
[2020-09-28 07:40] LABS: CHLORIDE 102 mEq/L (98-107)
[2020-09-28 08:30] VITALS: BP 103/70
[2020-09-28] MEDS: OLANZAPINE 5MG TABLET PO SCH (09:11)
[2020-09-28] MEDS: ARIPIPRAZOLE 5MG TABLET PO SCH (09:12)
[2020-09-28] MEDS: MULTIVITAMINS,THER W-MINERALS TABLET PO SCH (09:12)
[2020-09-28] MEDS: FOLIC ACID 1 MG, THIAMINE HCL 100 MG in DEXTROSE 5% WATER 1,000 ML IV SCH (10:11)
[2020-09-28 12:00] VITALS: BP 112/96
[2020-09-28 16:00] VITALS: BP 108/74
[2020-09-28] MEDS: RIVAROXABAN 20 MG TABLET PO SCH (16:51)
[2020-09-28 18:04] VITALS: BP 105/76
[2020-09-28] MEDS ORDERED: DOXEPIN HCL 25MG CAPSULE PO SCH (21:00)
== END 2020-09-28 19:50 | disposition left against medical advice (07) | DRG 951 ==
LOC: ER 17:11 → 6WST 09-24 02:41 → ENRESERV 09-24 03:00 → EDBEDREQSVC 09-24 03:20 → EDBEDREQDT 09-24 03:20 → EDBEDREQTM 09-24 03:20
PROVIDERS: ADMIT Internal Medicine; ATTEND Internal Medicine
PROC: 0QB10ZZ Excision of Sacrum, Open Approach (ICD-10-PCS; principal; 2020-09-27)
PROC: 0JBM0ZZ Excision of Left Upper Leg Subcutaneous Tissue and Fascia, Open Approach (ICD-10-PCS; 2020-09-27)
DX: G93.41 Metabolic encephalopathy (principal); L89.223 Pressure ulcer of left hip, stage 3; G82.50 Quadriplegia, unspecified; L89.153 Pressure ulcer of sacral region, stage 3; E46 Unspecified protein-calorie malnutrition; I47.1 Supraventricular tachycardia; M48.02 Spinal stenosis, cervical region; F12.90 Cannabis use, unspecified, uncomplicated; F20.9 Schizophrenia, unspecified; J44.9 Chronic obstructive pulmonary disease, unspecified; E87.5 Hyperkalemia; E78.00 Pure hypercholesterolemia, unspecified; E78.5 Hyperlipidemia, unspecified; I11.0 Hypertensive heart disease with heart failure; I27.20 Pulmonary hypertension, unspecified; I48.91 Unspecified atrial fibrillation; Y90.9 Presence of alcohol in blood, level not specified; M47.12 Other spondylosis with myelopathy, cervical region; G95.89 Other specified diseases of spinal cord; J96.11 Chronic respiratory failure with hypoxia; F10.231 Alcohol dependence with withdrawal delirium; I48.92 Unspecified atrial flutter; Z53.29 Procedure and treatment not carried out because of patient's decision for other reasons; I50.30 Unspecified diastolic (congestive) heart failure; Z79.01 Long term (current) use of anticoagulants; Z99.81 Dependence on supplemental oxygen; Z79.899 Other long term (current) drug therapy; Z98.1 Arthrodesis status; Z68.25 Body mass index [BMI] 25.0-25.9, adult
CPT/HCPCS: 36415; 36600; 70551; 71045; 72141; 80048; 80053; 80061; 80305; 80320; 81003; 82040; 82140; 82375; 82550; 82553; 82805; 83735; 83880; 84134; 84439; 84443; 84484; 85025; 85379; 93005; 93306; 93970; 97162; 97166; 97530; 99285; J0696; J1200; J1630; J1650; J2060; J2270; J3411; J3490; J7030; J7040; J7070; G0480